=== PATIENT | female | born 1960 | race Asian ===

== ENCOUNTER 2019-06-15 06:53 | Day surgery (SDC) | payer MEDICAID ==
[~2019-06-15] VITALS: Ht 157.5 cm; Wt 52.2 kg
[2019-06-15] MEDS ORDERED: LACTATED RINGERS 1,000 ML IV SCH ×2 (07:00→09:30)
[2019-06-15] MEDS ORDERED: TOBRAMYCIN SULFATE 80MG/2ML 30ML ONE (07:23)
[2019-06-15] MEDS ORDERED: METHYLPREDNISOLONE SOD SUCC 40 MG/ML VIAL ONE (07:23)
[2019-06-15] MEDS ORDERED: CIPROFLOXACIN 0.3% OPHTH SOLN 2.5ML RIGHTEYE NR (07:45)
[2019-06-15] MEDS ORDERED: LACTATED RINGERS 500 ML IV SCH (07:54)
[2019-06-15] MEDS ORDERED: VITA100T3 PO (09:13)
[2019-06-15] MEDS ORDERED: FISH MT (09:13)
[2019-06-15] MEDS ORDERED: MIDAZOLAM HCL 2 MG/2 ML VIAL ONE (09:23)
[2019-06-15] MEDS ORDERED: PROPOFOL 200MG/20ML VIAL IV ONE (09:25)
[2019-06-15] MEDS ORDERED: ACET650T37 PO (09:47)
== END 2019-06-15 10:45 | disposition home or self-care (01) ==
LOC: OR 06:53
PROVIDERS: ATTEND Ophthalmology
DX: H11.001 Unspecified pterygium of right eye (principal); E78.5 Hyperlipidemia, unspecified; Z79.899 Other long term (current) drug therapy; Z86.2 Personal history of diseases of the blood and blood-forming organs and certain disorders involving the immune mechanism
CPT/HCPCS: 65420; 88304; 93005; J2250; J2704; J2920; J3260